=== PATIENT | male | born 1985 | race Caucasian/White ===

== ENCOUNTER 2016-08-17 08:45 | Outpatient (CLI) | payer OTHER | END 2016-08-17 08:46 | disposition home or self-care (01) | DX: G47.30 Sleep apnea, unspecified (principal); F51.3 Sleepwalking [somnambulism]; G47.10 Hypersomnia, unspecified; R06.83 Snoring; G47.8 Other sleep disorders ==

== ENCOUNTER 2016-08-26 21:26 | Outpatient (CLI) | payer OTHER | END 2016-08-26 21:27 | disposition home or self-care (01) | DX: G47.33 Obstructive sleep apnea (adult) (pediatric) (principal); F51.3 Sleepwalking [somnambulism] ==